=== PATIENT | female | born 1960 | race African-American/Black ===

== ENCOUNTER 2025-01-31 12:33 | Outpatient (CLI) | payer OTHER | END 2025-01-31 12:34 | disposition home or self-care (01) | LOC: CSHULT 12:33 | PROVIDERS: ATTEND Family Medicine | DX: I50.9 Heart failure, unspecified (principal) | CPT/HCPCS: 93306 ==

== ENCOUNTER 2025-05-06 12:16 | Outpatient (CLI) | payer OTHER | END 2025-05-06 12:17 | disposition home or self-care (01) | LOC: CSHCT 12:16 | PROVIDERS: ATTEND Family Medicine | DX: N20.0 Calculus of kidney (principal) | CPT/HCPCS: 74176 ==